=== PATIENT | male | born 1955 | race Two or more races ===

== ENCOUNTER 2018-08-27 13:37 | Day surgery (SDC) | payer MEDICARE, BC ==
--- NOTE | 2018-08-26 20:57 | Pre-Procedure Note/Attestation ---
Pre-Procedure Note/Attestation Complete Prior to Procedure Planned Procedure: left Procedure Narrative: Excision of Left Upper Arm / Shoulder Mass Indications for Procedure Pre-Operative Diagnosis: Left upper arm / shoulder mass Attestation I attest that I discussed the nature of the procedure; its benefits; risks and complications; and alternatives (and the risks and benefits of such alternatives ), prior to the procedure, with the patient (or the patient's legal signs and displays sales representative). I attest that, if there was a reasonable possibility of needing a blood transfusion, the patient (or the patient's legal signs and displays sales representative) was given the [facility] standardized written summary, pursuant to the [place] Blood Safety Act ([place] Health and Safety Code # 1645, as amended). I attest that I re-evaluated the patient just prior to the surgery and that there has been no change in the patient's H&P, except as documented below: Oliver Lan August 26, 2018 20:57
--- NOTE | 2018-08-26 21:00 | Consultation ---
History of Present Illness General Date patient seen: August 11, 2018 Present Illness HPI 63 year old male with left upper arm mass noted over 20 years ago. Feels as it has been growing. Recently much larger then prior and would now like it removed. Seen in Office for evaluation and surgery indicated and recommended. Planned for 08/27/2018. Patient History History Provided By: Patient, Medical Record, PMD Healthcare decision maker Resuscitation status Advanced Directive on File Past Medical/Surgical History Past Medical/Surgical History: (1) Mass of left upper extremity Review of Systems Review of Symptoms General ROS: no weight loss or fever Psychological ROS: no depression or mood changes, no memory loss Ophthalmic ROS: no visual changes or eye irritation ENT ROS: no nasal congestion, hearing loss, dizziness Allergy and Immunology ROS: no allergic symptoms or urticaria Hematological and Lymphatic ROS: no swollen glands, unusual bleeding or bruising Endocrine ROS: no polyuria, polydipsia, weight changes, temperature intolerance Respiratory ROS: no cough, shortness of breath, or wheezing Cardiovascular ROS: no chest pain or dyspnea on exertion Gastrointestinal ROS: denies abdominal pain, no bright red blood in stool. Musculoskeletal ROS: no myalgias or arthralgias Neurological ROS: no TIA or stroke symptoms Dermatological ROS: no new or changing skin lesions, rashes or pruritis Physical Exam Physical Exam General appearance: alert, cooperative, no distress, appears stated age Head: Normocephalic, without obvious abnormality, atraumatic Eyes: conjunctivae/corneas clear. PERRL, EOM's intact. Fundi benign Throat: Lips, mucosa, and tongue normal. Teeth and gums normal Neck: supple, symmetrical, trachea midline, no adenopathy, thyroid: not enlarged, symmetric, no tenderness/mass/nodules, no carotid bruit and no JVD Lungs: clear to auscultation bilaterally Heart: regular rate and rhythm, S1, S2 normal, no murmur, click, rub or gallop Abdomen: soft, non-tender. Bowel sounds normal. No masses, no organomegaly Extremities: extremities normal, atraumatic, no cyanosis or edema. left upper extremity there is a 8cm x 6cm x 4cm mobile mass noted near the triceps area Pulses: 2+ and symmetricshould Skin: Skin color, texture, turgor normal. No rashes or lesions Neurologic: Grossly normal Assessment/Plan Problem List: (1) Mass of left upper extremity Assessment & Plan: Left upper extremity mass near triceps recently growing and uncomfortable would like removal which is indicated and recommended scheduled for 08/27/18 under local and MAC. NPO p MN IV fluids Consent Thank you outpatient surgery ICD Codes: R22.32 - Localized swelling, mass and lump, left upper limb SNOMED: [id number] Oliver Lan August 26, 2018 21:00
[~2018-08-27] VITALS: Ht 167.6 cm; Wt 102.1 kg
[2018-08-27] VITALS (9 sets, daily range): BP systolic 119–135; BP diastolic 78–89
[~2018-08-27 13:37] MED LIST: ceFAZolin sod 1 GM in D5W 55 ML IV ONE
[2018-08-27] MEDS ORDERED: Bacitracin Oint 15gm Tube TOPIC ONE (14:01)
[2018-08-27] MEDS ORDERED: Lidocaine 1% 10mg/ml/Epi 0.005mg/ml 30ml vial INJ ONE (14:01)
[2018-08-27] MEDS ORDERED: ASPIRIN81 MG ORAL (14:05)
[2018-08-27] MEDS ORDERED: LIPITOR20 MG ORAL (14:05)
--- NOTE | 2018-08-27 14:31 | Anethesia Preoperative Eval ---
Anesthesia Pre-op PMH/ROS General Date of Evaluation: August 27, 2018 Anesthesiologist: Destin ASA Score: ASA 3 Mallampati Score Class I : Soft palate, uvula, fauces, pillars visible Class II: Soft palate, uvula, fauces visible Class III: Soft palate, base of uvula visible Class IV: Only hard plate visible Mallampati Classification: Class II Surgeon: Edyta Diagnosis: Left hand mass Surgical Procedure: Excision left hand mass Anesthesia History: none Family History: no anesthesia problems Allergies: Coded Allergies: No Known Allergies (Unverified , 08/26/18) Medications: see eMAR Patient NPO?: Yes NPO Date: August 26, 2018 NPO Time: 22:00 Past Medical History Cardiovascular: Reports: HTN, CAD, other - HLD; Denies: ID, valve dz, arrhythmia Pulmonary: Denies: asthma, COPD, LICO, other Gastrointestinal/Genitourinary: Reports: other - prostate cancer; Denies: GERD, CRI, ESRD Neurologic/Psychiatric: Denies: dementia, CVA, depression/anxiety, TIA, other Endocrine: Denies: DM, hypothyroidism, steroids, other HEENT: Denies: cataract (L), cataract (R), glaucoma, [place] (L), [place] (R), other Hematology/Immune: Denies: anemia, DVT, bleeding disorder, other Musculoskeletal/Integumentary: Denies: OA, RA, DJD, DDD, edema, other Other: obesity PSxH Narrative: prostatectomy Anesthesia Pre-op Phys. Exam Physician Exam Last Vital Signs Date Time Temp Pulse Resp B/P (MAP) Pulse Ox O2 Delivery O2 Flow Rate FiO2 08/27/18 14:11 Room Air 08/27/18 14:08 97.6 64 18 135/78 100 Constitutional: NAD Cardiovascular: RRR Respiratory: CTA Airway Exam Mallampati Score: Class II MO: full ROM: full Anesthesia Pre-op A/P Labs see chart Studies Pre-op Studies: EKG - sr Risk Assessment & Plan Assessment: ASA III Plan: MAC Status Change Before Surgery: No Pre-Antibiotics Drug: Ancef 2g Given Within 1 Hr of Incision: Yes Claudia Devine MD August 27, 2018 14:31
[2018-08-27] MEDS ORDERED: LORazepam Inj 2mg/ml 1ml IV PRN (14:45)
[2018-08-27] MEDS ORDERED: Ketorolac 30mg Inj IV PRN (14:45)
[2018-08-27] MEDS ORDERED: LR 1000ml ONE (15:00)
[2018-08-27] MEDS ORDERED: NS Irrig 1000ml ONE (15:00)
[2018-08-27] MEDS ORDERED: Lidocaine 1% MPF 10mg/ml 5ml ONE (15:00)
[2018-08-27] MEDS ORDERED: Sterile Water Irrig 1000ml IRRIG ONE (15:00)
[2018-08-27] MEDS ORDERED: Metoclopramide 10mg/2ml Inj IVP PRN (15:02)
[2018-08-27] MEDS ORDERED: Midazolam 2mg/2ml Inj IVP PRN ×2 (15:02→15:15)
[2018-08-27] MEDS ORDERED: DiphenhydrAMINE 50mg/ml Inj IVP PRN (15:03)
[2018-08-27] MEDS ORDERED: LR 1000ml 1,000 ML IVLG SCH (15:04)
[2018-08-27] MEDS ORDERED: fentaNYL 100 mcg/2 mL IV PRN (15:06)
[2018-08-27] MEDS ORDERED: Hydromorphone 0.5mg/0.5ml inj IVP PRN (15:06)
[2018-08-27] MEDS ORDERED: Midazolam 2mg/2ml Inj ONE (15:06)
--- NOTE | 2018-08-27 15:49 | Brief Operative Note ---
Immediate Post Operative Note Operative Note Pre-op Diagnosis: Left upper arm / shoulder mass Procedure: excision of left upper extremity mass adjacent localized tissue transfer for complex closure Post-op Diagnosis: same as pre-op Surgeon: dylon Anesthesiologist: roshan avendano Anesthesia: local, MAC Specimen: yes Complications: none Condition: stable Fluids: see records Estimated Blood Loss: minimal Drains: none Implant(s) used?: No Oliver Lan August 27, 2018 15:49
--- NOTE | 2018-08-27 15:50 | Immediate Post-Op Evaluation ---
Immediate Post-Op Evalulation Immediate Post-Op Evalulation Procedure: Excision left upper extremity mass Date of Evaluation: August 27, 2018 Time of Evaluation: 15:52 IV Fluids: 500 Blood Products: 0 Estimated Blood Loss: min Urinary Output: 0 Blood Pressure Systolic: 131 Blood Pressure Diastolic: 89 Pulse Rate: 72 Respiratory Rate: 16 O2 Sat by Pulse Oximetry: 96 Temperature (Fahrenheit): 97.6 Pain Score (1-10): 0 Nausea: No Vomiting: No Complications 0 Patient Status: awake, reacts, patent, none Hydration Status: adequate Drug: Ancef 2g Given Within 1 Hr of Incision: Yes Claudia Devine MD August 27, 2018 15:50
--- NOTE | 2018-08-27 15:51 | 48 Hour Post Anesthesia Eval ---
Post Anesthesia Evaluation Procedure: Excision left upper extremity mass Date of Evaluation: August 27, 2018 Airway: patent Nausea: No Vomiting: No Pain Intensity: 0 Hydration Status: adequate Cardiopulmonary Status: at baseline Mental Status/LOC: patient returned to baseline Post-Anesthesia Complications: 0 Follow-up care needed: ready to discharge Claudia Devine MD August 27, 2018 15:51
[2018-08-27] MEDS ORDERED: Tylenol #3 tab (300mg/30mg) ORAL PRN (16:00)
[2018-08-27] MEDS ORDERED: D5 1/2NS 1,000 ML IV SCH (16:00)
[2018-08-27] MEDS ORDERED: HYDROcodone/Acetamin 5/325 tab ORAL PRN (16:00)
[2018-08-27] MEDS ORDERED: HYDROmorphone 1mg/ml Carpuject SUBQ PRN (16:00)
--- NOTE | 2018-08-27 17:10 | NUR ---
AWAKE, ALERT. NO C/O PAIN OR DISCOMFORTS AT THIS TIME, DISCHARGE INSTRUCTION AND PRESCRIPTION GIVEN AND EXPLAINED TO PATIENT, PATIENT WENT HOME WITH SON IN STABLE CONDITION, ALL NEEDS ATTENDED.
--- NOTE | 2018-08-28 01:00 | Operative Note - Dictated ---
DATE OF OPERATION: 08/27/2018 PREOPERATIVE DIAGNOSIS: Left upper extremity/shoulder mass. POSTOPERATIVE DIAGNOSIS: Left upper extremity proximal just distal to the shoulder at the level in between the triceps and biceps mass approximately 8 cm x 6 cm x 3 cm. OPERATION PERFORMED: 1. Excision of left upper extremity mass. 2. Adjacent localized tissue transfer for complex closure. ATTENDING SURGEON: Oliver Lan M.D. OUTBOARD MOTOR ASSEMBLER: None. ANESTHESIOLOGIST: Dr. Destin Herbert. ANESTHESIA: Local MAC. ESTIMATED BLOOD LOSS: Minimal. IV FLUIDS: Please see anesthesia records. COMPLICATIONS: None. DRAINS: None. ANTIBIOTICS: 2 g Ancef IV given one hour prior to cut time. IMPLANTS: None. SPECIMENS: Mass/lipoma sent to pathology for review. INDICATIONS FOR PROCEDURE: This is a 63-year-old male who was referred to Dr. Lan for evaluation in my office of a left upper extremity mass. The patient was seen and evaluated in the office and identified a mass in the left upper extremity, which he explained that he has had for approximately 20 years, but recently is noted and has become larger growing and causing discomfort. On examination, he was identified to have an 8 cm mobile mass in the left proximal upper arm/distal shoulder at the area in between the biceps and triceps muscles anterior lateral. Given these findings, removal/excision was indicated and recommended. Risks, benefits, and alternatives were discussed with the patient in detail, expressed understanding, and consented to procedure. OPERATIVE NOTE: The patient was taken to the operating room and placed on the operating table in supine position with bilateral arms out. All the bony prominences were well padded. SCDs were placed. Preoperative time-out was taken in identifying the patient, procedure, operative staff, and surgical staff. A 2 g Ancef IV were given one hour prior to cut time. The left upper extremity and shoulder were prepped and draped in standard surgical fashion. The mass was identified and at the apex of the mass, a 5 cm skin incision was made using a fresh #15 scalpel after a fair amount of local anesthetic was infiltrated to desired effect. Once this was completed, the dermis was incised and the subcutaneous tissue was identified as a fairly large mobile hard lipoma was easily protruding out with tension. At this time, the mass was circumferentially dissected out and identified to have a stalk/base deep to the subfascial. A small fascial incision was made and the stalk/stalk and base of this mass/lipoma was ligated using a 3-0 Vicryl suture. Following this, the wound bed was evaluated, irrigated, and hemostasis obtained with electrocautery. There was a fair size defect in the patient's arm given the location between the subcutaneous tissue and the dermis to the fascia. To prevent the patient from having a seroma formation, possible abscess collection, and possible defect, or , the localized subcutaneous tissue was mobilized off the fascial plane as well as at the dermal layer and the subcutaneous tissue was mobilized over the area of the defect and reapproximated using 3-0 Vicryl sutures. Following this, the area defect had been closed appropriately with subcutaneous tissue transfer from both the medial and lateral aspect for a complex multiple layer closure. At this time, the remaining dermis was reapproximated using 3-0 Vicryl sutures followed by a 4-0 Monocryl subcuticular running suture for the skin incision. The patient tolerated the procedure well. The skin glue and Steri-Strips were applied. The patient was taken to postanesthetic care unit in stable condition. The specimen was sent for pathology. Oliver Lan M.D. DR: MARIEL JOB#: [id number] CC:
--- NOTE | 2018-08-31 15:29 | History & Physical ---
History and Physical History & Physicial History of Present Illness General Date patient seen: August 11, 2018 Present Illness HPI 63 year old male with left upper arm mass noted over 20 years ago. Feels as it has been growing. Recently much larger then prior and would now like it removed. Seen in Office for evaluation and surgery indicated and recommended. Planned for 08/27/2018. Patient History History Provided By: Patient, Medical Record, PMD Healthcare decision maker Resuscitation status Advanced Directive on File Past Medical/Surgical History Past Medical/Surgical History: (1) Mass of left upper extremity Review of Systems Review of Systems Review of Symptoms General ROS: no weight loss or fever Psychological ROS: no depression or mood changes, no memory loss Ophthalmic ROS: no visual changes or eye irritation ENT ROS: no nasal congestion, hearing loss, dizziness Allergy and Immunology ROS: no allergic symptoms or urticaria Hematological and Lymphatic ROS: no swollen glands, unusual bleeding or bruising Endocrine ROS: no polyuria, polydipsia, weight changes, temperature intolerance Respiratory ROS: no cough, shortness of breath, or wheezing Cardiovascular ROS: no chest pain or dyspnea on exertion Gastrointestinal ROS: denies abdominal pain, no bright red blood in stool. Musculoskeletal ROS: no myalgias or arthralgias Neurological ROS: no TIA or stroke symptoms Dermatological ROS: no new or changing skin lesions, rashes or pruritis Physical Exam Physical Exam Physical Exam General appearance: alert, cooperative, no distress, appears stated age Head: Normocephalic, without obvious abnormality, atraumatic Eyes: conjunctivae/corneas clear. PERRL, EOM's intact. Fundi benign Throat: Lips, mucosa, and tongue normal. Teeth and gums normal Neck: supple, symmetrical, trachea midline, no adenopathy, thyroid: not enlarged, symmetric, no tenderness/mass/nodules, no carotid bruit and no JVD Lungs: clear to auscultation bilaterally Heart: regular rate and rhythm, S1, S2 normal, no murmur, click, rub or gallop Abdomen: soft, non-tender. Bowel sounds normal. No masses, no organomegaly Extremities: extremities normal, atraumatic, no cyanosis or edema. left upper extremity there is a 8cm x 6cm x 4cm mobile mass noted near the triceps area Pulses: 2+ and symmetricshould Skin: Skin color, texture, turgor normal. No rashes or lesions Neurologic: Grossly normal Assessment/Plan Assessment/Plan Problem List: (1) Mass of left upper extremity Assessment & Plan: Left upper extremity mass near triceps recently growing and uncomfortable would like removal which is indicated and recommended scheduled for 08/27/18 under local and MAC. NPO p MN IV fluids Consent Thank you outpatient surgery ICD Codes: R22.32 - Localized swelling, mass and lump, left upper limb SNOMED: [id number] Oliver Lan August 31, 2018 15:29
--- NOTE | 2018-09-01 20:28 | Cardiology Report ---
APPROVED REPORT EKG Measurement Heart [id number] PA [id number] Normal sinus rhythm Abnormal ECG
== END 2018-08-27 17:10 | disposition home or self-care (01) ==
LOC: SUR 13:37
DX: D17.22 Benign lipomatous neoplasm of skin and subcutaneous tissue of left arm (principal); E78.5 Hyperlipidemia, unspecified; I11.9 Hypertensive heart disease without heart failure; Z85.46 Personal history of malignant neoplasm of prostate; Z90.79 Acquired absence of other genital organ(s); E66.9 Obesity, unspecified; Z68.36 Body mass index [BMI] 36.0-36.9, adult
CPT/HCPCS: 11406; 13120; 93005; J0690; J2250; 94003; 94150